=== PATIENT | male | born 1980 | race African-American/Black ===

== ENCOUNTER 2024-10-31 09:48 | Emergency (ER) | payer OTHER ==
[~2024-10-31] VITALS: Ht 182.9 cm; Wt 112.0 kg
[2024-10-31 09:49] VITALS: TEMP 36.9; O2SAT 98
[2024-10-31] MEDS: LIDOCAINE HCL/PF 1% 10 MG/ML 5ML VIAL INFIL ONE (10:15)
[2024-10-31] MEDS: BACITRACIN ZINC OINT UDPKT TOP ONE (11:05)
[2024-10-31 11:26] VITALS: TEMP 98.5
[2024-10-31] MEDS: ACETAMINOPHEN 325MG TABLET PO ONE (11:26)
[2024-10-31] MEDS ORDERED: ACET-2708 MT (11:41)
[2024-10-31] MEDS ORDERED: BO1 TP (11:41)
[2024-10-31] MEDS: TETANUS, DIPHTHERIA, PERTUSSIS VAC/PF 0.5ML (>10YR OLD) IM ONE (11:50)
[2024-10-31] MEDS: KETOROLAC 30MG/ML VIAL IM ONE (12:09)
[2024-10-31 12:12] VITALS: BP 130/90; PULSE 80; RESP 14; O2SAT 99
== END 2024-10-31 12:18 | disposition home or self-care (01) ==
LOC: ER 09:48
DX: S01.01XA Laceration without foreign body of scalp, initial encounter (principal); R51.9 Headache, unspecified; Z79.899 Other long term (current) drug therapy; V89.2XXA Person injured in unspecified motor-vehicle accident, traffic, initial encounter; Y93.89 Activity, other specified; Y92.89 Other specified places as the place of occurrence of the external cause; Y99.8 Other external cause status
CPT/HCPCS: 99285; 70450; 72125; 74176; 90715; 12005; 90471; 96372; J1885